=== PATIENT | female | born 1995 | race Two or more races ===

== ENCOUNTER 2023-09-26 11:46 | Emergency (ER) | payer OTHER ==
[~2023-09-26] VITALS: Ht 152.4 cm; Wt 54.4 kg
[2023-09-26] MEDS ORDERED: FAMOtidine 20 MG TABLET PO ONE (12:45)
[2023-09-26] MEDS ORDERED: DIPHENHYDRAMINE HCL 50 MG CAPSULE PO ONE (12:45)
[2023-09-26 13:25] LABS: HEMOGLOBIN 12.9 g/dL (12.0-15.00); MEAN CELL VOLUME 87.5 fL (80.00-100.00); MEAN CORPUSCULAR HGB CONC 33.2 g/dl (32.0-36.0); PLATELET COUNT 215 K/uL (150-450); RED BLOOD COUNT 4.45 M/uL (4.00-6.00); RED CELL DISTRIBUTION WIDTH 13.9 % (11.5-14.5)
[2023-09-26] MEDS ORDERED: FAMOTIDINE/PF 20 MG/2 ML VIAL IV ONE (13:30)
[2023-09-26 13:50] LABS: CALCIUM 9.7 mg/dL (8.5-10.1); CREATININE SERUM 0.71 mg/dL (0.55-1.02); GFR 98.02; POTASSIUM 4.45 mEq/L (3.5-5.1); TSH 0.994 uIU/mL (0.358-3.74)
== END 2023-09-26 14:33 | disposition home or self-care (01) ==
LOC: ER 11:47
PROVIDERS: General Practice
DX: T78.1XXA Other adverse food reactions, not elsewhere classified, initial encounter (principal); Z91.018 Allergy to other foods; X58.XXXA Exposure to other specified factors, initial encounter